=== PATIENT | male | born 1945 | race Caucasian/White ===

== ENCOUNTER 2018-03-10 09:55 | Emergency (ER) | payer MEDICARE ==
[~2018-03-10] VITALS: Ht 180.3 cm; Wt 98.0 kg
[~2018-03-10 09:55] MED LIST: ALL DAY ALLERGY10 M3 PO; AMINOBUTYRIC ACI1 GM MC; B-100 COMPLEX1 EACH PO; CLINDAMYCIN HC300 MG PO; DOXYCYCLINE HYC50 MG PO; FISH OIL CONC1000 MG PO; HYDROCODON-ACE1 EAC8 PO; IBUPROFEN200 MG PO; L-TYROSINE500 MG PO; LISINOPRIL20 MG PO; LORAZEPAM0.5 MG PO; MULTI VITAMIN1 EACH PO; OXYCODONE HCL5 M1 PO; PROSTATE HEALT1 EACH PO; SERTRALINE HCL25 MG PO; TAMSULOSIN HCL0.4 MG PO; [UNRECOGNIZED DRUG - OTHER] PO; [UNRECOGNIZED DRUG - OTHER] PO
[2018-03-10] MEDS ORDERED: ONDANSETRON ODT8 MG PO (11:54)
[2018-03-10] MEDS ORDERED: BACTRIM DS TAB1 EACH PO (11:54)
== END 2018-03-10 12:21 | disposition home or self-care (01) ==
LOC: ED 09:55
DX: K52.9 Noninfective gastroenteritis and colitis, unspecified (principal); I10 Essential (primary) hypertension; Z88.0 Allergy status to penicillin; Z88.1 Allergy status to other antibiotic agents; Z88.8 Allergy status to other drugs, medicaments and biological substances; Z79.899 Other long term (current) drug therapy
CPT/HCPCS: 71045; 74177; 80053; 81001; 82150; 83690; 85025; 96361; 96374; 96375; 99284; J2405; J7030; Q9967